=== PATIENT | female | born 1980 | race African-American/Black ===

== ENCOUNTER 2017-01-03 16:46 | Emergency (ER) | payer OTHER ==
[~2017-01-03] VITALS: Ht 167.6 cm; Wt 111.0 kg
[2017-01-03] MEDS ORDERED: FLEXERIL (17:00)
[2017-01-03] MEDS ORDERED: FLEXIRIL (17:00)
[2017-01-03] MEDS ORDERED: KETOROLAC 30MG/ML VIAL IM ONE (17:45)
[2017-01-03] MEDS ORDERED: MORPHINE SULFATE 10 MG/ML CPJ IM ONE (17:45)
[2017-01-03] MEDS ORDERED: DIAZEPAM 5 MG TABLET PO ONE (17:45)
[2017-01-03 18:00] VITALS: BP 121/71
== END 2017-01-03 19:46 | disposition home or self-care (01) ==
LOC: ER 17:43
DX: M54.16 Radiculopathy, lumbar region (principal); M54.12 Radiculopathy, cervical region; G56.01 Carpal tunnel syndrome, right upper limb; M06.9 Rheumatoid arthritis, unspecified; F17.200 Nicotine dependence, unspecified, uncomplicated; Z90.49 Acquired absence of other specified parts of digestive tract
CPT/HCPCS: 72040; 72100; 96372; 99284; J1885; J2270; Z7610

== ENCOUNTER 2025-06-06 19:32 | Emergency (ER) | payer OTHER ==
[~2025-06-06] VITALS: Ht 167.6 cm; Wt 102.0 kg
[~2025-06-06 19:32] MED LIST: FLEXERIL; FLEXIRIL
[2025-06-06 19:36] VITALS: O2SAT 97
[2025-06-06 20:53] VITALS: BP 123/82; PULSE 72; RESP 17; TEMP 37.1; O2SAT 96
== END 2025-06-06 20:56 | disposition home or self-care (01) ==
LOC: ER 19:32
DX: R04.0 Epistaxis (principal); J45.909 Unspecified asthma, uncomplicated; Z90.49 Acquired absence of other specified parts of digestive tract; Z79.899 Other long term (current) drug therapy
CPT/HCPCS: 99283